=== PATIENT | male | born 1940 | race Caucasian/White ===

== ENCOUNTER → 2023-12-09 09:53 | Outpatient (CLI) | payer MEDICARE, SELFPAY | PROVIDERS: Family Provider Family Medicine; PCP Family Medicine; Referring Provider Dermatology MOHS-Micrographic Surgery; Visit Provider Surgery | DX: T81.89XA Other complications of procedures, not elsewhere classified, initial encounter (principal); I73.9 Peripheral vascular disease, unspecified; R60.0 Localized edema; L53.9 Erythematous condition, unspecified; I25.10 Atherosclerotic heart disease of native coronary artery without angina pectoris; I10 Essential (primary) hypertension; Z79.2 Long term (current) use of antibiotics | CPT/HCPCS: 11042; 87070; 87077; 87147; 87186; 87205; 99203; 99214 ==

== ENCOUNTER → 2023-12-15 13:37 | Outpatient (CLI) | payer MEDICARE, SELFPAY ==
--- NOTE | 2023-12-15 13:39 | DI.US.S_ITS ---
PROCEDURE: US ARTERIAL DUPLEX LE LT INDICATIONS: non-healing ulcer on left lower leg TECHNIQUE: Color and pulse Doppler interrogation was performed of the left lower extremity arterial system, with image documentation. COMPARISON: None. FINDINGS: Common femoral artery: 81 cm/sec, with triphasic flow. Deep femoral artery: 59 cm/sec, with triphasic flow. Proximal superficial femoral artery: 63 cm/sec, with triphasic flow. Mid superficial femoral artery: 63 cm/sec, with triphasic flow. Distal superficial femoral artery: 57 cm/sec, with triphasic flow. Popliteal artery: 59 cm/sec, with triphasic flow. Posterior tibial artery: 17 cm/sec, with biphasic flow. Anterior tibial artery/dorsalis pedis: 19 cm/sec, with biphasic flow. Ibrahim-scale imaging description: No focal hemodynamically significant stenosis. IMPRESSION: Biphasic and triphasic waveforms throughout. No focal hemodynamically significant stenosis. Dictated by: Reema Chiang M.D. on 12/15/2023 at 17:23 Approved by: Reema Chiang M.D. on 12/15/2023 at 17:26
== END ==
PROVIDERS: Family Provider Family Medicine; Referring Provider Surgery; Visit Provider Surgery
DX: L97.929 Non-pressure chronic ulcer of unspecified part of left lower leg with unspecified severity (principal)
CPT/HCPCS: 93926

== ENCOUNTER → 2023-12-19 10:24 | Outpatient (CLI) | payer MEDICARE, SELFPAY | PROVIDERS: Family Provider Family Medicine; Referring Provider Dermatology MOHS-Micrographic Surgery; Visit Provider Surgery | DX: T81.89XA Other complications of procedures, not elsewhere classified, initial encounter (principal); S81.802A Unspecified open wound, left lower leg, initial encounter; R60.0 Localized edema; I25.10 Atherosclerotic heart disease of native coronary artery without angina pectoris; I73.9 Peripheral vascular disease, unspecified | CPT/HCPCS: 11042 ==

== ENCOUNTER → 2023-12-19 10:50 | Outpatient (CLI) | payer MEDICARE, SELFPAY | PROVIDERS: Family Provider Family Medicine; Referring Provider Surgery; Visit Provider Surgery | DX: L97.929 Non-pressure chronic ulcer of unspecified part of left lower leg with unspecified severity (principal) | CPT/HCPCS: 36415; 83036 ==

== ENCOUNTER → 2023-12-26 10:13 | Outpatient (CLI) | payer MEDICARE, SELFPAY | PROVIDERS: Family Provider Family Medicine; Referring Provider Dermatology MOHS-Micrographic Surgery; Visit Provider Surgery | DX: T81.89XA Other complications of procedures, not elsewhere classified, initial encounter (principal); S81.802A Unspecified open wound, left lower leg, initial encounter; R60.0 Localized edema; I73.9 Peripheral vascular disease, unspecified; I25.10 Atherosclerotic heart disease of native coronary artery without angina pectoris | CPT/HCPCS: 11042 ==

== ENCOUNTER → 2024-01-02 10:21 | Outpatient (CLI) | payer MEDICARE, SELFPAY | LOC: WC 10:24 | PROVIDERS: Family Provider Family Medicine; Referring Provider Dermatology MOHS-Micrographic Surgery; Visit Provider Surgery | DX: T81.89XA Other complications of procedures, not elsewhere classified, initial encounter (principal); S81.801A Unspecified open wound, right lower leg, initial encounter; S81.802A Unspecified open wound, left lower leg, initial encounter; L98.8 Other specified disorders of the skin and subcutaneous tissue; I73.9 Peripheral vascular disease, unspecified; R60.0 Localized edema; I25.10 Atherosclerotic heart disease of native coronary artery without angina pectoris | CPT/HCPCS: 11042; 99213 ==

== ENCOUNTER → 2024-01-09 09:59 | Outpatient (CLI) | payer MEDICARE, SELFPAY | PROVIDERS: Family Provider Family Medicine; Referring Provider Dermatology MOHS-Micrographic Surgery; Visit Provider Surgery | DX: T81.89XA Other complications of procedures, not elsewhere classified, initial encounter (principal); S81.802A Unspecified open wound, left lower leg, initial encounter; S81.801A Unspecified open wound, right lower leg, initial encounter; L98.8 Other specified disorders of the skin and subcutaneous tissue; I73.9 Peripheral vascular disease, unspecified; R60.0 Localized edema; I25.10 Atherosclerotic heart disease of native coronary artery without angina pectoris; I10 Essential (primary) hypertension | CPT/HCPCS: 11042; 99213 ==

== ENCOUNTER → 2024-01-18 12:50 | Outpatient (CLI) | payer MEDICARE, SELFPAY | PROVIDERS: Family Provider Family Medicine; Referring Provider Dermatology MOHS-Micrographic Surgery; Visit Provider Surgery | DX: T81.89XA Other complications of procedures, not elsewhere classified, initial encounter (principal); S81.801A Unspecified open wound, right lower leg, initial encounter; S81.802A Unspecified open wound, left lower leg, initial encounter; L98.8 Other specified disorders of the skin and subcutaneous tissue; I73.9 Peripheral vascular disease, unspecified | CPT/HCPCS: 11042 ==

== ENCOUNTER → 2024-01-25 08:38 | Outpatient (CLI) | payer MEDICARE, SELFPAY | LOC: WC 08:38 | PROVIDERS: Family Provider Family Medicine; Referring Provider Dermatology MOHS-Micrographic Surgery; Visit Provider Surgery | DX: T81.89XA Other complications of procedures, not elsewhere classified, initial encounter (principal); S81.801A Unspecified open wound, right lower leg, initial encounter; S81.802A Unspecified open wound, left lower leg, initial encounter; L98.8 Other specified disorders of the skin and subcutaneous tissue; I73.9 Peripheral vascular disease, unspecified | CPT/HCPCS: 11042 ==

== ENCOUNTER → 2024-02-01 10:13 | Outpatient (CLI) | payer MEDICARE, SELFPAY | PROVIDERS: Family Provider Family Medicine; Referring Provider Dermatology MOHS-Micrographic Surgery; Visit Provider Nurse Practitioner Family | DX: T81.89XA Other complications of procedures, not elsewhere classified, initial encounter (principal); S81.802A Unspecified open wound, left lower leg, initial encounter; S81.801A Unspecified open wound, right lower leg, initial encounter; L98.8 Other specified disorders of the skin and subcutaneous tissue; I73.9 Peripheral vascular disease, unspecified | CPT/HCPCS: 97597 ==

== ENCOUNTER → 2024-02-08 11:34 | Outpatient (CLI) | payer MEDICARE, SELFPAY | LOC: WC 11:35 | PROVIDERS: Family Provider Family Medicine; Referring Provider Dermatology MOHS-Micrographic Surgery; Visit Provider Surgery | DX: T81.89XA Other complications of procedures, not elsewhere classified, initial encounter (principal); S81.801A Unspecified open wound, right lower leg, initial encounter; S81.802A Unspecified open wound, left lower leg, initial encounter; L98.8 Other specified disorders of the skin and subcutaneous tissue; L53.9 Erythematous condition, unspecified; I73.9 Peripheral vascular disease, unspecified; I25.10 Atherosclerotic heart disease of native coronary artery without angina pectoris; I10 Essential (primary) hypertension; Z79.2 Long term (current) use of antibiotics | CPT/HCPCS: 11042; 87070; 87075; 87077; 87147; 87186; 87205; 99213 ==

== ENCOUNTER → 2024-02-15 10:31 | Outpatient (CLI) | payer MEDICARE, SELFPAY | LOC: WC 10:32 | PROVIDERS: Family Provider Family Medicine; Referring Provider Dermatology MOHS-Micrographic Surgery; Visit Provider Surgery | DX: T81.89XA Other complications of procedures, not elsewhere classified, initial encounter (principal); S81.801A Unspecified open wound, right lower leg, initial encounter; L98.8 Other specified disorders of the skin and subcutaneous tissue; L53.8 Other specified erythematous conditions | CPT/HCPCS: 99212; 99213 ==

== ENCOUNTER → 2024-04-03 11:28 | Outpatient (CLI) | payer MEDICARE, SELFPAY | PROVIDERS: Family Provider Family Medicine; Visit Provider Surgery | DX: S81.801A Unspecified open wound, right lower leg, initial encounter (principal); T81.89XA Other complications of procedures, not elsewhere classified, initial encounter; L98.8 Other specified disorders of the skin and subcutaneous tissue; R60.0 Localized edema; I25.10 Atherosclerotic heart disease of native coronary artery without angina pectoris; I73.9 Peripheral vascular disease, unspecified; Z79.01 Long term (current) use of anticoagulants | CPT/HCPCS: 11042; 99213 ==

== ENCOUNTER → 2024-04-10 09:33 | Outpatient (CLI) | payer MEDICARE, SELFPAY | LOC: WC 09:34 | PROVIDERS: Family Provider Family Medicine; Referring Provider Dermatology MOHS-Micrographic Surgery; Visit Provider Surgery | DX: T81.89XA Other complications of procedures, not elsewhere classified, initial encounter (principal); S81.801A Unspecified open wound, right lower leg, initial encounter; L98.8 Other specified disorders of the skin and subcutaneous tissue; I73.9 Peripheral vascular disease, unspecified; Z79.01 Long term (current) use of anticoagulants | CPT/HCPCS: 11042 ==

== ENCOUNTER → 2024-04-17 09:23 | Outpatient (CLI) | payer MEDICARE, SELFPAY | LOC: WC 09:23 | PROVIDERS: Family Provider Family Medicine; Referring Provider Dermatology MOHS-Micrographic Surgery; Visit Provider Surgery | DX: T81.89XA Other complications of procedures, not elsewhere classified, initial encounter (principal); S81.801A Unspecified open wound, right lower leg, initial encounter; L98.8 Other specified disorders of the skin and subcutaneous tissue; I73.9 Peripheral vascular disease, unspecified | CPT/HCPCS: 11042 ==

== ENCOUNTER → 2025-01-08 09:05 | Outpatient (CLI) | payer MEDICARE, SELFPAY | PROVIDERS: Family Provider Family Medicine; Visit Provider Surgery | DX: T81.89XA Other complications of procedures, not elsewhere classified, initial encounter (principal); S81.801A Unspecified open wound, right lower leg, initial encounter; S81.811A Laceration without foreign body, right lower leg, initial encounter; C44.712 Basal cell carcinoma of skin of right lower limb, including hip; I73.9 Peripheral vascular disease, unspecified; L08.9 Local infection of the skin and subcutaneous tissue, unspecified; Z87.891 Personal history of nicotine dependence; I10 Essential (primary) hypertension; R73.03 Prediabetes; M10.00 Idiopathic gout, unspecified site | CPT/HCPCS: 11042; 11045; 87070; 87077; 87147; 87186; 87205; 99213 ==

== ENCOUNTER → 2025-01-15 14:44 | Outpatient (CLI) | payer MEDICARE, SELFPAY | LOC: WC 14:46 | PROVIDERS: Family Provider Family Medicine; Visit Provider Surgery | DX: S81.801A Unspecified open wound, right lower leg, initial encounter (principal); C44.712 Basal cell carcinoma of skin of right lower limb, including hip; S81.811A Laceration without foreign body, right lower leg, initial encounter; L08.9 Local infection of the skin and subcutaneous tissue, unspecified; I73.9 Peripheral vascular disease, unspecified | CPT/HCPCS: 11042 ==

== ENCOUNTER → 2025-01-22 12:10 | Outpatient (CLI) | payer MEDICARE, SELFPAY | LOC: WC 12:11 | PROVIDERS: Family Provider Family Medicine; Visit Provider Surgery | DX: C44.712 Basal cell carcinoma of skin of right lower limb, including hip (principal); Z09 Encounter for follow-up examination after completed treatment for conditions other than malignant neoplasm; Z87.828 Personal history of other (healed) physical injury and trauma; S81.811D Laceration without foreign body, right lower leg, subsequent encounter; I73.9 Peripheral vascular disease, unspecified; Z79.01 Long term (current) use of anticoagulants | CPT/HCPCS: 99213 ==